=== PATIENT | male | born 1990 | race Caucasian/White ===

== ENCOUNTER 2022-08-27 19:55 | Emergency (ER) | payer SELFPAY ==
[~2022-08-27] VITALS: Ht 177.8 cm; Wt 91.0 kg
[2022-08-27] MEDS ORDERED: HALOPERIDOL LACTATE 5MG/ML VIAL IM ONE (21:30)
[2022-08-27] MEDS ORDERED: LORAZEPAM 2MG/ML CPJ IM ONE (21:30)
[2022-08-28 06:00] VITALS: BP 122/82
== END 2022-08-28 06:19 | disposition home or self-care (01) ==
LOC: ER 19:55
DX: F10.129 Alcohol abuse with intoxication, unspecified (principal); Y90.0 Blood alcohol level of less than 20 mg/100 ml; Z87.891 Personal history of nicotine dependence
CPT/HCPCS: 96372; 99284; J1630; J2060